=== PATIENT | male | born 1990 | race Caucasian/White ===

== ENCOUNTER 2020-09-20 11:32 | Emergency (ER) | payer BC, SELFPAY ==
[2020-09-20 11:42] VITALS: BP 158/97; PULSE 85; RESP 16; TEMP 36.6; O2SAT 98
[2020-09-20] MEDS: Lidocaine/Epinephri/Tetracaine Topical Gel 3 ML (11:55)
--- NOTE | 2020-09-20 12:11 | ED.GENADUL_ITS ---
Discharge Plan Disposition Patient Disposition: HOME Condition: Stable Discharge Details Clinical Impression: Laceration of hand Primary Care Provider: Frankie Craven ED Provider: Alethea Bonner Home Meds and New Rx's Prescriptions: New cephalexin 500 mg tablet 500 mg PO BID 7 Days Qty: 14 RF: 0 Discharge Instructions Instructions: Laceration (ED) Additional Instructions: Follow up with primary care provider in 3-5 days. Return to ED sooner if any worsening or concerns. Increase oral fluids. Please take Tylenol or Ibuprofen with food every 4-6 hours as needed for pain and swelling. No soaking, leave alone for 12 to 24 hours and then may wash under running soap and water. Allow to air dry at least 2 hours a day. Do not place bacitracin or Neosporin on wound. Keep covered when out and about. Have sutures removed in 7 to 10 days. Return to the ED for any red streaks, signs of infection, any concerns. Referrals: Frankie Craven [Primary Care Provider] - Discharge Data Discharge Date/Time-TO BE ENTERED AT DEPARTURE: 09/20/20 13:39 Medical Decision Making 30-year-old male presents to the ED with chief complaint of left hand laceration. Approximately 1 hour prior to arrival patient states that he is sustained a laceration to the palm of his left hand from a cold metal edge of a side view mirror on a truck he was working on. He has full circulation sensatio n and movement noted just distal to the injury to his fingers. He reports last tetanus shot was 1 year ago but is unsure. Wound appears contaminated, no active bleeding noted at this time. Let was applied in triage. He has a proximately 5 to 6 cm laceration in length noted to the palmar aspect of his left hand. Denies any other injuries not take any medications prior to arrival. Last tetanus shot was March 23, 2019 at [facility]. EXAM: XR HAND LT COMPLETE CLINICAL HISTORY: Laceration palm, r/o FB. TECHNIQUE: 2D digital imaging was performed. COMPARISON: No exams were available for comparison FINDINGS: BONES: No acute fracture is present. No bony destructive lesion is seen. JOINTS: No dislocation present. SOFT TISSUE: There is gauze of the palm of the hand. No foreign body is identified. IMPRESSION: Unremarkable radiographs of the left hand. Laceration repaired as noted in the procedure note above. Wound anesthetized with 1% lidocaine with epi, wound was cleaned and irrigated and visualized contaminants removed. Laceration approximated with #9 four-point 0 nylon sutures simple interrupted patient tolerated well. Instructed on home care and follow-up. Instructed to have sutures removed in 7 to 10 days. Discussed strict return instructions including signs of infection. Patient was placed on cephalexin 500 mg tablets twice a day x7 days. This text was generated using [employer] dictation system, please disregard any oddities of phrase or misspellings. HPI General Mode of arrival: ambulatory . Date/Time Provider Initiated Documentation: 09/20/20 11:38 . Limitations to Documentation: no limitations . Information obtained by: patient . HPI Narrative: 30-year-old male presents to the ED with chief complaint of left hand laceration. Approximately 1 hour prior to arrival patient states that he is sustained a laceration to the palm of his left hand from a cold metal edge of a side view mirror on a truck he was working on. He has full circulation sensation and movement noted just distal to the injury to his fingers. He reports last tetanus shot was 1 year ago but is unsure. Wound appears contaminated, no active bleeding noted at this time. Let was applied in triage. He has a proximately 5 to 6 cm laceration in length noted to the palmar aspect of his left hand. Denies any other injuries not take any medications prior to arrival. Last tetanus shot was March 23, 2019 at [facility]. Related Data Home Medications Medication Instructions Recorded Confirmed cephalexin 500 mg PO BID 7 Days #14 tab 09/20/20 Previous Rx's Medication Instructions Recorded cephalexin 500 mg PO BID 7 Days #14 tab 09/20/20 Allergies Allergy/AdvReac Type Severity Reaction Status Date / Time tramadol Allergy Unverified 09/20/20 11:45 General Stated Complaint: Laceration YELENA: 4 Review of Systems Narrative: Constitutional: Negative for weight loss, alert and oriented, well groomed, normal body habitus, appears comfortable. HEENT: Denies trauma, headaches, blurry vision, nasal discharge, sore throat, trouble swallowing. Chest: Denies chest pain, palpitations, irregular rhythm, hypertension. Respiratory: Denies Shortness of breath, cough, hemoptysis. Skin: Here with a laceration noted to his left palm. [facility] Social History Smoking/Tobacco Use Status: Current every day Tobacco Type: cigarettes Alcohol Intake: current Alcohol Intake frequency: holidays/special occasions only Alcohol type: beer Substance use type: marijuana Do you feel safe at home: Yes Do you feel safe in your relationship?: Yes Exam Skin Trauma: laceration (Proximately six centimeters in length, partial-thickness) left palmar hand Extrem Left upper extremity: full ROM and normal capillary refill; no cyanosis and no edema Hand/finger images: 1. Partial-thickness laceration noted to the palmar aspect of his left hand. Appears contaminated. Course Vital Signs Vital signs: Vital Signs Temperature 36.6 C 09/20/20 11:42 Pulse 85 09/20/20 11:42 Respiratory Rate 16 09/20/20 11:42 Blood Pressure 158/97 H 09/20/20 11:42 Pulse Oximetry 98 09/20/20 11:42 Temperature 36.6 C 09/20/20 11:42 Temperature Source Tympanic 09/20/20 11:42 Pulse 85 09/20/20 11:42 Respiratory Rate 16 09/20/20 11:42 Respiratory Effort Non-Labored 09/20/20 11:44 Blood Pressure 158/97 H 09/20/20 11:42 Blood Pressure Position Sitting 09/20/20 11:42 Pulse Oximetry 98 09/20/20 11:42 Oxygen Delivery Method Room Air 09/20/20 11:42 Oxygen Flow Rate 0 09/20/20 11:42 Pain Level 4 09/20/20 11:53 Procedures Laceration Laceration 1: Site: hand Side (If applicable): left Size (cm): 6 Description: linear and contaminated Depth: simple, single layer Local Anesthetic: Lidocaine 1% and with Epi Amount of anesthesia used (mL): 3 Pre-repair: wound explored, irrigated extensively and deep structures intact Skin layer closed with: nylon Size (cm): 4-0 Number of sutures: 9 Technique: simple, interrupted
--- NOTE | 2020-09-20 12:15 | DI.RAD_ITS ---
EXAM: XR HAND LT COMPLETE CLINICAL HISTORY: Laceration palm, r/o FB. TECHNIQUE: 2D digital imaging was performed. COMPARISON: No exams were available for comparison FINDINGS: BONES: No acute fracture is present. No bony destructive lesion is seen. JOINTS: No dislocation present. SOFT TISSUE: There is gauze of the palm of the hand. No foreign body is identified. IMPRESSION: Unremarkable radiographs of the left hand. DATA REPOSITORY: RADIATION DOSE DELIVERED:
[2020-09-20] MEDS: Cephalexin 500 MG CAP PO (13:42)
== END 2020-09-20 13:39 | disposition home or self-care (01) ==
PROVIDERS: Emergency Provider Registered Nurse Emergency; PCP Family Medicine
DX: S61.412A Laceration without foreign body of left hand, initial encounter (principal); W26.8XXA Contact with other sharp object(s), not elsewhere classified, initial encounter
CPT/HCPCS: 12002; 99281; 73130

== ENCOUNTER 2022-04-14 18:29 | Outpatient (REF) | payer BC, SELFPAY ==
[2022-04-14 21:50] LABS: HCT 45.6 % (40.0-50.0); HGB 15.3 g/dL (13.5-17.5); MCH 29.4 pg (27.0-33.0); MCHC 33.6 % (32.0-36.0); MCV 88 fL (80-95); MPV 9.8 fL (8.0-11.0); Platelet Count 266 10^3/uL (130-400); RDW 12.4 % (11.8-14.1); RDW-SD 40.2 fL; WBC 8.39 10^3/uL (4.4-10.8)
[2022-04-14 22:38] LABS: ALT 28 U/L (16-63); AST 17 U/L (15-37); Alkaline Phosphatase 58 U/L (46-116); Anion Gap 9.2 mmol/L (3-11); BUN 16 mg/dL (7-18); Bilirubin, Total 0.3 mg/dL (0.2-1.0); CO2 27.8 mmol/L (21.0-32.0); CREATININE 0.8 mg/dL (0.70-1.30); Calcium 8.6 mg/dL (8.5-10.1); Chloride 106 mmol/L (98-107); Glucose 109 mg/dL (74-106); Potassium 4.1 mmol/L (3.5-5.1); Sodium 143 mmol/L (136-145); TSH (W/Ref FT4) 0.55 uIU/mL (0.36-3.74); Total Protein 6.9 g/dL (6.4-8.2); Vitamin B12 321 pg/mL (193-986)
[2022-04-16 06:41] LABS: Vitamin D 25 Total 26.5 ng/mL (30-100)
[2022-04-16 10:03] LABS: HIV-1/2 Ag & Ab Screen Negative (Negative)
[2022-04-16 10:17] LABS: Hepatitis C Ab w Rflx HCV PCR Negative (Negative)
[2022-04-16 11:32] LABS: Syphilis Serology (RPR) Negative (Negative)
[2022-04-16 15:31] LABS: Chlamydia Result Negative (Negative); GC Result Negative (Negative)
== END 2022-04-14 18:30 | disposition home or self-care (01) ==
LOC: NCHCN 18:29
PROVIDERS: PCP Family Medicine; Visit Provider Family Medicine
DX: Z00.00 Encounter for general adult medical examination without abnormal findings (principal); R20.2 Paresthesia of skin; E55.9 Vitamin D deficiency, unspecified; R53.83 Other fatigue; Z11.3 Encounter for screening for infections with a predominantly sexual mode of transmission; Z11.4 Encounter for screening for human immunodeficiency virus [HIV]; Z11.59 Encounter for screening for other viral diseases
CPT/HCPCS: 80053; 82306; 85027; 86803; 87389; 87491; 87591; 82607; 84443; 86592

== ENCOUNTER 2022-06-23 03:22 | Outpatient (CLI) | payer BC, SELFPAY ==
[2022-06-23 11:25] LABS: Source Nasal/Nares
[2022-06-23 16:22] LABS: COVID-19 PCR Negative (Negative)
== END 2022-06-23 03:23 | disposition home or self-care (01) ==
PROVIDERS: PCP Family Medicine; Visit Provider Surgery
DX: Z20.822 Contact with and (suspected) exposure to COVID-19 (principal); Z01.818 Encounter for other preprocedural examination
CPT/HCPCS: 87635

== ENCOUNTER 2022-06-25 06:06 | Day surgery (SDC) | payer BC, SELFPAY ==
[2022-06-25 06:26] VITALS: BP 119/81; PULSE 58; RESP 18; TEMP 36.6; O2SAT 97
[2022-06-25] MEDS: Lactated Ringers 1,000 ML 80 ML IV (06:42)
--- NOTE | 2022-06-25 06:58 | W.ANESPRE ---
General Info Date of Service Date Performed: 06/25/22 Height: 6 ft Weight: 83.2 kg Body Mass Index (BMI): 24.8 Surgical Procedure: Operation Date: 06/25/22 07:35 Proposed Procedure Side Surgeon p Gastroscopy w/Biopsy Kumar Shields MD Meds Allergies and Home Medications Allergies Allergy/AdvReac Type Severity Reaction Status Date / Time tramadol Allergy Verified 06/25/22 06:25 Home Medication Medication Instructions Recorded cholecalciferol (vitamin D3) 25 25 mcg PO DAILY 06/11/22 mcg (1,000 unit) capsule vitamin B complex 1 tab PO DAILY 06/17/22 Current Visit Medications: Current Medications Generic Name Dose Route Start Last Admin Trade Name Freq PRN Reason Stop Dose Admin Ringer's Solution 1,000 mls @ 80 mls/hr 06/25/22 06:00 06/25/22 06:42 IV 07/24/22 23:59 80 mls/hr INFUSION LAY Administration IV Miscellaneous Supplies 1 each 06/25/22 06:00 Iv Access IV 07/24/22 23:59 DIRECTED LAY Sodium Chloride 0 ml 06/25/22 06:00 Normal Saline Flush 10 Ml Syr IV 07/24/22 23:59 PRN PRN Sodium Chloride 0 ml 06/25/22 06:00 Normal Saline 10 Ml Vial IJ 07/24/22 23:59 DIRECTED PRN Sterile Water 0 ml 06/25/22 06:00 Water,Injection,Sterile 10 Ml Vial IJ 07/24/22 23:59 DIRECTED PRN PFSH Active Problems Active Problems: Problem Status Onset Code Chronic diarrhea K52.9 Abnormal weight loss R63.4 Dysphagia R13.10 Medical History Medical History Burn Left knee pain Paresthesia Vitamin D deficiency Tobacco Smoking/Tobacco Use Status: Current every day Tobacco Type: cigarettes Alcohol Alcohol Intake: current Alcohol intake frequency: a few times a week Alcohol type: beer Substance Use Substance use: Occasionally Substance use type: marijuana Vital Signs and Lab Results Vital Signs Most Recent Vital Signs in EMR: Most Recent Vital Signs Temp Pulse Resp BP Pulse Ox 36.6 C 58 L 18 119/81 97 06/25/22 06:26 06/25/22 06:26 06/25/22 06:26 06/25/22 06:26 06/25/22 06:26 Lab Results Blood Type / Crossmatch: No Data to Display Complete Blood Count: No Data to Display Complete Metabolic Panel: No Data to Display Liver Function Panel: No Data to Display Coagulation Panel: No Data to Display Cardiac Panel: No Data to Display Arterial Blood Gas: No Data to Display Venous Blood Gas: No Data to Display Pancreas Panel: No Data to Display Thyroid Panel: No Data to Display Infectious Disease: Coronavirus (COVID-19)(PCR) Negative (Negative) 06/23/22 10:35 Coronavirus 2019 Source Nasal/Nares 06/23/22 10:35 Blood Cultures: No Data to Display Toxicology Panel: No Data to Display Anesthesia Assessment and Plan Anesthesia History Personal History: No History of General Anesthesia Family History: No Family History of Anesthesia Complications Exercise Tolerance Exercise Tolerance: Metabolic Equivalents>4 Pertinent Negatives Pertinent Negatives: No Symptoms of GERD, No Major Cardiovascular Symptoms or Complaints and No Major Pulmonary Symptoms or Complaints Cardiac & Pulmonary Exam Cardiac Exam: Normal S1/S2 Heart Sounds Pulmonary Exam: Clear Bilateral Breath Sounds Implantable Cardiac Device Does patient have a Pacemaker or an ICD?: No Airway Exam Known Difficult Airway: No Mallampati Class: 1 Mouth Opening: Normal (> 3cm) Thyromental Distance: Greater than 3 cm Facial Hair: Full Hernandes Neck Range of Motion: Full ROM Neck Circumference: Normal Teeth Condition: Normal Dentition ASA Classification ASA Score: ASA 2 Emergency Case?: No NPO Status NPO Status: NPO Clears >2 hours, Solids >8 hours Anesthesia Plan Resuscitation Status: Full Code Anesthesia Technique: General Anesthesia Airway Planned: Natural Airway Monitors Used: Standard Monitors
[2022-06-25 06:59] VITALS: BMI 24.8
--- NOTE | 2022-06-25 07:17 | W.PM.DSUDISC ---
Discharge Plan Disposition Patient Disposition: HOME Condition: Good Discharge Details Reason For Visit: EGD Attending Provider: Kumar Shields Primary Care Provider: Frankie Craven Home Meds and New Rx's Prescriptions: New pantoprazole [Protonix] [address] for susp in packet 40 mg PO BID Qty: 44 0RF Rx Instructions: take 1 pill twice daily for 2 weeks, then one pill daily Continued vitamin B complex Tablet 1 tab PO DAILY cholecalciferol (vitamin D3) 25 mcg (1,000 unit) capsule 25 mcg PO DAILY Discharge Instructions Instructions: Upper Endoscopy (DC), Diet for Stomach Ulcers and Gastritis (ED), Peptic Ulcer (GEN) Additional Instructions: 1. If tolerated, consume a soft, low fiber diet for 1-2 days or follow any special diet recommended by your physician. 2. Do not drive, drink alcohol, operate machinery, make critical decisions, or do activities that require coordination or balance for 24 hours. 3. You may experience a sore throat for 24 to 48 hours. You may use throat lozenges or gargle with warm salt water to relieve the discomfort. 4. Because air was put into your stomach during the procedure, you may experience some belching. 5. Go directly to the emergency room if you notice any of the following: ? Develop chills (warm to touch), or if you have a thermometer and your temperature is above 101 ? Difficulty breathing or difficultly swallowing ? Persistent vomiting or vomiting with blood/nasal regurgitation ? Severe abdominal pain, other than gas cramps ? Severe chest pain ? Black, tarry stools 6. Call your physician if the site where your intravenous was started becomes red, swollen, painful, and warm to touch. 7. Your physician has reviewed your preprocedure medications. Please continue to take those medications as previously ordered. You will be given specific information/education regarding any changes to your medications before leaving. Referrals: Kumar Shields MD [ [facility] STAFF PHYSICIAN] - Activity:: Activity as Tolerated Diet:: follow instructions Discharge Orders Discharge Orders: Discharge Order (Routine); Ordered 06/25/22 Ordered By: Kumar Shields Discharge Data Discharge Comment: f/u me 2 weeks DS: Diagnosis Discharge Diagnosis (1) Dysphagia: Status: Acute (2) Gastric ulcer: Status: Acute
--- NOTE | 2022-06-25 07:23 | W.PM.ENDDOP ---
Date of service: 06/25/22 Time of Service: 07:56 Endoscopy Report DATE OF PROCEDURE: 06/25/22 PRE-OP DIAGNOSIS: Dysphagia POST-OP DIAGNOSIS: other (Gastritis) PROCEDURE: EGD SURGEON: Kumar Shields ANESTHESIA TYPE: MAC ESTIMATED BLOOD LOSS: 10 PATHOLOGY: other (duodenum for celiac, stomach for h. pylori) COMPLICATIONS: None DISPOSITION: same day INDICATIONS: Dino is a 32-year-old male with a recent history of gnawing epigastric pain and nausea. FINDINGS: Healing gastric ulcer PROCEDURE DESCRIPTION: After the initiation of monitored anesthetic care, and with the assistance of a bite block, I advanced a standard gastroscope through the mouth past the hypopharynx and into the esophagus.? Under the direct vision of the scope, I advanced down the esophagus into the stomach.? Once I entered the stomach, I performed a brief inspection, followed by retroflexion towards the gastric cardia.? This appeared normal.? After that, I gently advanced the scope around the incisura angularis and examined the pylorus.? This also appeared normal.? Next, I advanced the scope through the pylorus into the duodenum.? The mucosa was pink and healthy appearing.? There were no abnormalities.?I performed random biopises to assess for celaic disease. I was able to visualize bile draining into the duodenum through the ampulla Vater. ?Next, I began retracting the endoscope.? Again, I returned to the stomach which was carefully examined once again.?There was a subcentimeter area of older appearing blood. I irrigated this. It appeared consistent with a small healing gastric ulcer. I perfomed biosies of the stomach andrum and body for h. pylori. I then gently desufflated some of the stomach, and withdrew the endoscope into the distal esophagus. The esophagus appeared normal. ?Finally, I withdrew the scope along the length of the esophagus taking great care to examine the entirety of the mucosa.? I did not appreciate any abnormalities.
--- NOTE | 2022-06-25 07:35 | STOM_PTH ---
PATIENT: Dino Burgess LOC: [facility] U#:[id number] AGE/SX: 32/M ROOM: RE06/25/[address]: Kumar Shields MD : 1990 BED: DIS: 06/25/2022 SPEC #: [id number] RECD: 06/25/22 12:48 STATUS: CHANDRA RE #: [id number] ELLIOT: 06/25/22 07:[address]: Kumar Shields DEPT: Surgical Specimen RECD BY: Veronika Da Silva ENTERED: 06/25/22 12:50 SP TYPE: STOMACH OTHR DR: Frankie Craven Tissues: 1 - BIOPSY BOWEL 2 - STOMACH BIOPSY 3 - STOMACH BIOPSY Procedures: GROSS AND MICRO LEVEL 4 Comments: [id number]
[2022-06-25 07:45] VITALS: BP 134/79; PULSE 65; RESP 20; TEMP 36.5; O2SAT 95
--- NOTE | 2022-06-25 08:00 | W.ANESPOSTOP ---
Postoperative Evaluation Date, Time and Location Date Performed: 06/25/22 Time Performed: 08:00 Patient Location: Day Surgery Unit Vital Signs Most Recent Imported Vital Signs: Most Recent Vital Signs Temp Pulse Resp BP Pulse Ox 36.5 C 65 20 134/79 95 06/25/22 07:45 06/25/22 07:45 06/25/22 07:45 06/25/22 07:45 06/25/22 07:45 Pain Score Most Recent Pain Score: Most Recent Pain Score Pain Level 1 06/25/22 06:26 Assessment Mental Status: Awake (Alert & Oriented to Patient Baseline) Airway and Respiratory Function: Patent airway with normal (patient baseline) respiratory exam Cardiovascular Function: Hemodynamically Stable Hydration Status: Adequately Hydrated Nausea & Vomiting: No Nausea or Vomiting Pain: Pt. Denies Any Pain Peripheral Nerve Block: Patient did not receive a nerve block
[2022-06-25 08:01] VITALS: BP 138/77; PULSE 63; RESP 18; O2SAT 99
[2022-06-25 08:12] VITALS: BP 140/84; PULSE 61; RESP 18; TEMP 36.4; O2SAT 97
== END 2022-06-25 08:44 | disposition home or self-care (01) ==
PROVIDERS: PCP Family Medicine; Visit Provider Surgery
PROC: 0DJ68ZZ Inspection of Stomach, Via Natural or Artificial Opening Endoscopic (ICD-10-PCS; CPT 43235; principal; 2022-06-25 07:30)
DX: R13.10 Dysphagia, unspecified (principal); K29.70 Gastritis, unspecified, without bleeding; K25.9 Gastric ulcer, unspecified as acute or chronic, without hemorrhage or perforation; F17.210 Nicotine dependence, cigarettes, uncomplicated; E55.9 Vitamin D deficiency, unspecified; K22.89 Other specified disease of esophagus; K31.89 Other diseases of stomach and duodenum
CPT/HCPCS: 43239; 88305; J2704

== ENCOUNTER 2023-01-19 10:30 | Outpatient (REF) | payer BC, SELFPAY ==
[2023-01-19 14:59] LABS: HCT 44.1 % (40.0-50.0); HGB 14.8 g/dL (13.5-17.5); MCH 29.8 pg (27.0-33.0); MCHC 33.6 % (32.0-36.0); MCV 89 fL (80-95); Platelet Count 239 10^3/uL (130-400); RBC 4.97 10^6/uL (4.36-5.78); RDW 12.3 % (11.8-14.1); RDW-SD 40.3 fL; WBC 5.71 10^3/uL (4.4-10.8)
[2023-01-19 15:33] LABS: Vitamin D 25 Total 44.2 ng/mL (30-100)
[2023-01-19 15:38] LABS: Vitamin B12 411 pg/mL (193-986)
[2023-01-21 12:16] LABS: IgA 133 mg/dL (85-499); Interpretation (See Note); Tissue Transglutaminase IgA <1.2 U/mL (<4.0)
== END 2023-01-19 10:31 | disposition home or self-care (01) ==
LOC: NCHCN 10:30
PROVIDERS: PCP Family Medicine; Visit Provider Family Medicine
DX: K90.0 Celiac disease (principal); E55.9 Vitamin D deficiency, unspecified; E53.8 Deficiency of other specified B group vitamins
CPT/HCPCS: 82306; 82784; 83516; 85027; 82607

== ENCOUNTER 2023-05-27 10:57 | Outpatient (REF) | payer BC, SELFPAY | END 2023-05-27 10:58 | disposition home or self-care (01) | LOC: NCHCN 10:57 | PROVIDERS: PCP Family Medicine; Visit Provider Registered Nurse | DX: J06.9 Acute upper respiratory infection, unspecified (principal) | CPT/HCPCS: 87081 ==

== ENCOUNTER 2025-07-13 21:38 | Outpatient (REF) | payer MEDICAID, SELFPAY ==
[2025-07-13 21:11] LABS: HCT 42.4 % (40.0-50.0); HGB 14.3 g/dL (13.5-17.5); MCH 29.2 pg (27.0-33.0); MCHC 33.7 % (32.0-36.0); MCV 87 fL (80-95); MPV 10.4 fL (8.0-11.0); Platelet Count 259 10^3/uL (130-400); RBC 4.89 10^6/uL (4.36-5.78); RDW 12.1 % (11.8-14.1); RDW-SD 38.6 fL; WBC 8.29 10^3/uL (4.4-10.8)
[2025-07-13 21:38] LABS: Hemoglobin A1C 5.5 % (<5.7)
[2025-07-13 21:50] LABS: ALT 26 U/L (16-63); AST 19 U/L (15-37); Albumin 4.1 g/dL (3.4-5.0); Alkaline Phosphatase 60 U/L (46-116); Anion Gap 9.4 mmol/L (3-11); BUN 18 mg/dL (7-18); Bilirubin, Total 0.3 mg/dL (0.2-1.0); CO2 26.6 mmol/L (21.0-32.0); Calcium 8.9 mg/dL (8.5-10.1); Calculated LDL 91 mg/dL (<100); Chloride 106 mmol/L (98-107); Cholesterol 156 mg/dL (<200); Estimated GFR 119.84 (mL/min/1.73m2); Glucose 94 mg/dL (74-106); HDL Cholesterol 42 mg/dL (>or=40); Potassium 4.2 mmol/L (3.5-5.1); Sodium 142 mmol/L (136-145); Total Protein 7.2 g/dL (6.4-8.2); Triglyceride 115 mg/dL (<150); Vitamin B12 390 pg/mL (193-986); Vitamin D 25 Total 38 ng/mL (30-100)
[2025-07-15 10:18] LABS: Hepatitis C Ab w Rflx HCV PCR Negative (Negative)
[2025-07-15 10:25] LABS: HIV-1/2 Ag & Ab Screen Negative (Negative)
[2025-07-16 12:13] LABS: Chlamydia Result Negative (Negative); GC Result Negative (Negative)
[2025-07-16 14:00] LABS: Syphilis Serology (RPR) Negative (Negative)
== END 2025-07-13 21:39 | disposition home or self-care (01) ==
LOC: NCHCN 21:38
PROVIDERS: PCP Family Medicine; Visit Provider Family Medicine
DX: Z00.00 Encounter for general adult medical examination without abnormal findings (principal); Z11.3 Encounter for screening for infections with a predominantly sexual mode of transmission; E55.9 Vitamin D deficiency, unspecified; E53.8 Deficiency of other specified B group vitamins
CPT/HCPCS: 80053; 80061; 82306; 85027; 86803; 87389; 87491; 87591; 82607; 83036; 86592